=== PATIENT | male | born 1940 | race Caucasian/White ===

== ENCOUNTER 2016-07-18 18:52 | Observation (INO) | payer OTHER ==
[2016-07-18 21:56] LABS: BASO % 0.2 % (0.2-1.2); EOS # 0.2 10_X3_uL (0.0-0.5); EOS % 4.2 % (0.8-7.0); GRAN # 3.3 10_X3_uL (1.8-5.4); GRAN % 69.9 % (34.0-67.9); HEMATOCRIT 42.2 % (40-51); HEMOGLOBIN 13.8 g/dL (13.7-17.5); LYMPH # 0.9 10_X3_uL (1.3-3.6); LYMPH % 19.1 % (21.8-53.1); MEAN CORPUSCULAR HEMOGLOBIN 31.7 pg (27.0-33.0); MEAN CORPUSCULAR HGB CONC 32.7 g/dL (32.0-36.0); MEAN CORPUSCULAR VOLUME 96.8 fL (79-92); MEAN PLATELET VOLUME 10.7 fl (7.5-11.5); MONO # 0.3 10_X3_uL (0.3-0.8); MONO % 6.6 % (5.3-12.2); PLATELET COUNT 215 x10_3/uL (163-337); RED BLOOD COUNT 4.36 x10_6/uL (4.6-6.1); RED CELL DISTRIBUTION WIDTH 13.4 % (11.6-14.4); WHITE BLOOD COUNT 4.7 x10_3/uL (4.2-9.1)
[2016-07-18 22:11] LABS: BILIRUBIN,TOTAL 0.35 mg/dL (0.0-1.0); CALCIUM 9.2 mg/dL (8.7-10.7); CREATININE 1.3 mg/dL (0.6-1.3); POTASSIUM 4.6 mmol/L (3.5-5.1); TOTAL PROTEIN 6.8 gm/dL (6.4-8.2)
[2016-07-19 07:33] LABS: BASO % 0.2 % (0.2-1.2); EOS # 0.3 10_X3_uL (0.0-0.5); EOS % 5.4 % (0.8-7.0); GRAN # 3.5 10_X3_uL (1.8-5.4); GRAN % 60.6 % (34.0-67.9); HEMATOCRIT 29.9 % (40-51); HEMOGLOBIN 9.7 g/dL (13.7-17.5); LYMPH # 1.4 10_X3_uL (1.3-3.6); LYMPH % 23.8 % (21.8-53.1); MEAN CORPUSCULAR HEMOGLOBIN 31.8 pg (27.0-33.0); MEAN CORPUSCULAR HGB CONC 32.4 g/dL (32.0-36.0); MEAN PLATELET VOLUME 10.4 fl (7.5-11.5); MONO # 0.6 10_X3_uL (0.3-0.8); PLATELET COUNT 252 x10_3/uL (163-337); RED BLOOD COUNT 3.05 x10_6/uL (4.6-6.1); RED CELL DISTRIBUTION WIDTH 13.2 % (11.6-14.4); WHITE BLOOD COUNT 5.7 x10_3/uL (4.2-9.1)
[2016-07-19 07:44] LABS: ALBUMIN 2.7 gm/dL (3.4-5.0); BILIRUBIN,TOTAL 0.29 mg/dL (0.0-1.0); CALCIUM 8.7 mg/dL (8.7-10.7); CREATININE 1.3 mg/dL (0.6-1.3); POTASSIUM 3.9 mmol/L (3.5-5.1); TOTAL PROTEIN 5.9 gm/dL (6.4-8.2)
== END 2016-07-20 11:50 | disposition home or self-care (01) ==
LOC: ER 18:52 → MS 07-19 00:59
PROVIDERS: Emergency Medicine; ADMIT Family Medicine
DX: I16.0 Hypertensive urgency (principal); I10 Essential (primary) hypertension; M54.5 Low back pain; G89.29 Other chronic pain; I25.10 Atherosclerotic heart disease of native coronary artery without angina pectoris; E11.9 Type 2 diabetes mellitus without complications; Z98.890 Other specified postprocedural states; Z83.3 Family history of diabetes mellitus; Z80.9 Family history of malignant neoplasm, unspecified; Z82.49 Family history of ischemic heart disease and other diseases of the circulatory system; Z79.899 Other long term (current) drug therapy; Z79.82 Long term (current) use of aspirin; N40.0 Benign prostatic hyperplasia without lower urinary tract symptoms; Z95.1 Presence of aortocoronary bypass graft; Z79.02 Long term (current) use of antithrombotics/antiplatelets
CPT/HCPCS: 36415; 72131; 80053; 80061; 82962; 83036; 84153; 85025; 96374; 96376; 99070; 99284; 99284-25; G0378

== ENCOUNTER 2016-07-22 13:09 | Emergency (ER) | payer OTHER ==
[2016-07-22 14:16] LABS: BASO % 0.1 % (0.2-1.2); EOS # 0.1 10_X3_uL (0.0-0.5); EOS % 1.3 % (0.8-7.0); GRAN # 8.6 10_X3_uL (1.8-5.4); GRAN % 87.1 % (34.0-67.9); HEMATOCRIT 35.1 % (40-51); HEMOGLOBIN 11.6 g/dL (13.7-17.5); LYMPH # 0.7 10_X3_uL (1.3-3.6); LYMPH % 7.2 % (21.8-53.1); MEAN CORPUSCULAR HEMOGLOBIN 32.2 pg (27.0-33.0); MEAN CORPUSCULAR VOLUME 97.5 fL (79-92); MEAN PLATELET VOLUME 10.5 fl (7.5-11.5); MONO # 0.4 10_X3_uL (0.3-0.8); MONO % 4.3 % (5.3-12.2); PLATELET COUNT 249 x10_3/uL (163-337); RED CELL DISTRIBUTION WIDTH 13.1 % (11.6-14.4); WHITE BLOOD COUNT 9.9 x10_3/uL (4.2-9.1)
[2016-07-22 14:29] LABS: ALBUMIN 3.1 gm/dL (3.4-5.0); BILIRUBIN,TOTAL 0.37 mg/dL (0.0-1.0); CALCIUM 8.8 mg/dL (8.7-10.7); CREATININE 1.5 mg/dL (0.6-1.3); POTASSIUM 4.2 mmol/L (3.5-5.1); TOTAL PROTEIN 6.5 gm/dL (6.4-8.2)
[2016-07-22 15:36] LABS: URINE BILIRUBIN NEGATIVE (NEGATIVE); URINE BLOOD 2+ (NEGATIVE); URINE GLUCOSE (UA) NORMAL (NORMAL); URINE KETONE NEGATIVE (NEGATIVE); URINE LEUKOCYTE ESTERASE TRACE (NEGATIVE); URINE NITRATE NEGATIVE (NEGATIVE); URINE PROTEIN 3+ (NEGATIVE); UROBILINOGEN NORMAL mg/dL (<1.0)
[2016-07-22 15:50] LABS: URINE AMORPHOUS SEDIMENT 2+; URINE BACTERIA FEW (NONE SEEN); URINE RBC >20 /[HPF] (0-2); URINE SQUAMOUS EPITHELIAL CELL 0-10 /[HPF] (NONE SEEN); URINE WBC 0-5 /[HPF] (0-3)
== END 2016-07-22 17:59 | disposition home or self-care (01) ==
LOC: ER 13:09
PROVIDERS: Emergency Medicine
DX: R55 Syncope and collapse (principal); K59.00 Constipation, unspecified; E11.9 Type 2 diabetes mellitus without complications; I10 Essential (primary) hypertension; Z95.1 Presence of aortocoronary bypass graft; Z79.82 Long term (current) use of aspirin; Z79.899 Other long term (current) drug therapy
CPT/HCPCS: 36415; 51701; 70450; 71010; 80053; 81001; 82550; 82553; 85025; 93005; 99070; 99284; 99285-25